=== PATIENT | male | born 1995 | race Caucasian/White ===

== ENCOUNTER 2018-03-24 13:37 | Emergency (ER) | END 2018-03-24 15:40 | disposition left against medical advice (07) | LOC: M ED 13:37 | DX: Z53.29 Procedure and treatment not carried out because of patient's decision for other reasons (principal) ==

== ENCOUNTER 2018-03-25 10:43 | Emergency (ER) | payer SELFPAY | END 2018-03-25 11:25 | disposition home or self-care (01) | LOC: M ED 10:43 | DX: J02.0 Streptococcal pharyngitis (principal) | CPT/HCPCS: 87880 ==